=== PATIENT | female | born 1945 | race Caucasian/White ===

== ENCOUNTER 2018-07-01 08:40 | Emergency (ER) | payer MEDICARE ==
[2018-07-01 09:18] LABS: Bilirubin Negative (Negative); Blood, Urine Negative (Negative); Clarity Clear (Clear); Glucose, Urine (Dipstick) Negative (Negative); Leukocyte Negative (Negative); Nitrite Negative (Negative); Protein, Urine (Dipstick) Negative (Neg-Trace); Urobilinogen 0.2 mg/dL (0.2-1.0)
[2018-07-01] MEDS ORDERED: Dexamethasone 4 MG TAB ONE (09:33)
[2018-07-01] MEDS ORDERED: Benzonatate 100 MG CAP ONE (09:33)
== END 2018-07-01 09:38 | disposition home or self-care (01) ==
LOC: MADERS 08:40
DX: J06.9 Acute upper respiratory infection, unspecified (principal); J02.9 Acute pharyngitis, unspecified; I10 Essential (primary) hypertension; R35.0 Frequency of micturition; Z79.899 Other long term (current) drug therapy
CPT/HCPCS: 81003; 87804; 99283; J8540

== ENCOUNTER 2019-03-24 06:13 | Emergency (ER) | payer MEDICARE ==
[2019-03-24] MEDS ORDERED: Dexamethasone 10 MG/ML VIAL ONE (06:55)
== END 2019-03-24 07:04 | disposition home or self-care (01) ==
LOC: MADERS 06:13
DX: J02.9 Acute pharyngitis, unspecified (principal); E78.5 Hyperlipidemia, unspecified; E78.2 Mixed hyperlipidemia; I10 Essential (primary) hypertension; Z79.899 Other long term (current) drug therapy
CPT/HCPCS: 87081; 87430; 87804; 96372; 99283; J1100

== ENCOUNTER 2019-04-21 10:59 | Emergency (ER) | payer MEDICARE ==
[2019-04-21] MEDS ORDERED: Naproxen 500 MG TAB ONE (11:39)
[2019-04-21] MEDS ORDERED: Dexamethasone 4 MG TAB ONE (11:39)
[2019-04-21] MEDS ORDERED: HYDROcodone/Acetaminophen 5/325 mg Tablet ONE (11:39)
== END 2019-04-21 11:48 | disposition home or self-care (01) ==
LOC: MADERS 10:59
DX: M62.838 Other muscle spasm (principal); M54.2 Cervicalgia; K21.9 Gastro-esophageal reflux disease without esophagitis; E78.2 Mixed hyperlipidemia; I10 Essential (primary) hypertension; Z79.899 Other long term (current) drug therapy
CPT/HCPCS: 99283; J8540

== ENCOUNTER 2021-02-04 18:38 | Emergency (ER) | payer MEDICARE ==
[2021-02-04] MEDS ORDERED: Orphenadrine Citrate 60 MG/2 ML VIAL ONE (19:13)
== END 2021-02-04 20:34 | disposition home or self-care (01) ==
LOC: MADERS 18:38
DX: M43.6 Torticollis (principal); K21.9 Gastro-esophageal reflux disease without esophagitis; E78.2 Mixed hyperlipidemia; I10 Essential (primary) hypertension; Z79.84 Long term (current) use of oral hypoglycemic drugs; Z79.899 Other long term (current) drug therapy
CPT/HCPCS: 96372; 99283; J2360

== ENCOUNTER 2021-12-07 18:16 | Emergency (ER) | payer MEDICARE ==
[2021-12-07 18:55] LABS: #Basophils 0.1 thou/uL (0.0-0.2); #Eosinphils 0.2 thou/uL (0.0-0.7); #Lymphocytes 2.1 thou/uL (1.20-3.40); #Monocytes 0.5 thou/uL (0.11-0.59); #Neutrophils 5.6 thou/uL (1.40-6.50); %Basophils 0.8 % (0.0-1.0); %Eosinophils 2.8 % (0.0-10.0); %Monocytes 5.9 % (0.0-10.0); %Neutrophils 65.6 % (42.0-75.0); Hemoglobin 11.3 g/dL (12.0-16.0); Mean Corpuscular HGB CONC 32.8 g/dL (32.0-36.0); Mean Corpuscular Hemoglobin 30.2 pg (27.0-31.0); Mean Corpuscular Volume 92.1 fL (78.0-98.0); Platelet Count 241 thou/uL (130-400); RBC Distribution Width 11.4 % (11.5-14.5); Red Blood Cell (RBC) Count 3.74 mill/uL (4.20-5.40); White Blood Cell (WBC) Count 8.5 thou/uL (4.8-10.8)
[2021-12-07 19:08] LABS: Anion Gap 16 mmol/L (10-20); BUN (Urea Nitrogen) 34 mg/dL (9.8-20.1); Calc. Creatinine Clearance 0 mL/min (70-130); Calcium 9.5 mg/dL (7.8-10.44); Carbon Dioxide 23 mmol/L (23-31); Chloride 107 mmol/L (98-107); Estimated GFR 33; Glucose 91 mg/dL (83-110); Potassium 5.2 mmol/L (3.5-5.1); Sodium 141 mmol/L (136-145)
[2021-12-07] MEDS ORDERED: Sodium Chloride 0.9% 1,000 ML ONE (19:32)
== END 2021-12-07 20:26 | disposition home or self-care (01) ==
LOC: MADERS 18:16
DX: E87.5 Hyperkalemia (principal); N28.9 Disorder of kidney and ureter, unspecified; K21.9 Gastro-esophageal reflux disease without esophagitis; E78.2 Mixed hyperlipidemia; I10 Essential (primary) hypertension
CPT/HCPCS: 80048; 85025; 93005; J7050

== ENCOUNTER 2022-11-21 08:10 | Emergency (ER) | payer MEDICARE ==
[2022-11-21 08:38] LABS: Bilirubin Negative (Negative); Blood, Urine Trace (Negative); Glucose, Urine (Dipstick) Negative (Negative); Ketone, Urine Negative (Negative); Leukocyte Moderate (Negative); Nitrite Negative (Negative); Protein, Urine (Dipstick) 30 mg/dL (Neg-Trace); Specific Gravity, Urine 1.025 (1.005-1.030); Urobilinogen 0.2 mg/dL (Less than 2)
[2022-11-21 08:45] LABS: CAUTI Indications for Culture Dysuria,urgency,freq; Clarity Hazy (Clear); RBC/HPF 0-3 HPF (0-3); WBC/HPF Greater than 50 HPF (0-3)
[2022-11-21 08:46] LABS: Bacteria/HPF 2+ HPF (None Seen)
[2022-11-21 08:48] LABS: Urine Culture Reflex Yes Yes
== END 2022-11-21 09:02 | disposition home or self-care (01) ==
LOC: MADERS 08:10
DX: N39.0 Urinary tract infection, site not specified (principal); E11.9 Type 2 diabetes mellitus without complications; K21.9 Gastro-esophageal reflux disease without esophagitis; E78.2 Mixed hyperlipidemia; I10 Essential (primary) hypertension; Z79.899 Other long term (current) drug therapy; Z79.84 Long term (current) use of oral hypoglycemic drugs
CPT/HCPCS: 81001; 87077; 87086; 87186; 99283

== ENCOUNTER 2023-03-19 10:05 | Emergency (ER) | payer MEDICARE | END 2023-03-19 11:53 | disposition home or self-care (01) | LOC: MADERS 10:05 | DX: J20.9 Acute bronchitis, unspecified (principal); E11.9 Type 2 diabetes mellitus without complications; K21.9 Gastro-esophageal reflux disease without esophagitis; I10 Essential (primary) hypertension; E78.2 Mixed hyperlipidemia; Z79.899 Other long term (current) drug therapy | CPT/HCPCS: 87804; 99283 ==